=== PATIENT | male | born 1985 | race Caucasian/White ===

== ENCOUNTER 2020-02-18 08:10 | Day surgery (SDC) | payer OTHER ==
[~2020-02-18] VITALS: Ht 185.4 cm; Wt 115.7 kg
[2020-02-18 08:41] VITALS: BP 148/86
[2020-02-18 13:45] VITALS: BP 140/93
== END 2020-02-18 14:10 | disposition home or self-care (01) ==
LOC: GI 08:10 → OR 10:00 → GI 10:00
PROVIDERS: ATTEND Internal Medicine Gastroenterology
DX: K21.00 Gastro-esophageal reflux disease with esophagitis, without bleeding (principal); B19.20 Unspecified viral hepatitis C without hepatic coma; K44.9 Diaphragmatic hernia without obstruction or gangrene; K22.10 Ulcer of esophagus without bleeding; K26.9 Duodenal ulcer, unspecified as acute or chronic, without hemorrhage or perforation; K74.60 Unspecified cirrhosis of liver; E66.9 Obesity, unspecified; Z68.33 Body mass index [BMI] 33.0-33.9, adult
CPT/HCPCS: 43235; J1200; J1610; J2250; J2310; J3010; J3490

== ENCOUNTER 2020-04-28 11:39 | Day surgery (SDC) | payer OTHER ==
[~2020-04-28] VITALS: Ht 185.4 cm; Wt 115.7 kg
[2020-04-28 12:07] VITALS: BP 135/80
[2020-04-28 17:10] VITALS: BP 124/76
== END 2020-04-28 17:05 ==
LOC: GI 11:39 → OR 12:00 → GI 17:05
PROVIDERS: ATTEND Internal Medicine Gastroenterology
DX: K21.9 Gastro-esophageal reflux disease without esophagitis (principal); K44.9 Diaphragmatic hernia without obstruction or gangrene; K22.10 Ulcer of esophagus without bleeding; K26.9 Duodenal ulcer, unspecified as acute or chronic, without hemorrhage or perforation; K26.7 Chronic duodenal ulcer without hemorrhage or perforation; Z79.82 Long term (current) use of aspirin
CPT/HCPCS: 43235; J1200; J1610; J2250; J2310; J3010; J3490